=== PATIENT | male | born 1995 | race Caucasian/White ===

== ENCOUNTER 2018-04-17 23:07 | Inpatient (IN) | payer MEDICAID, OTHER ==
[2018-04-18 00:07] LABS: ADD MAN DIFF? NO; URINE BLOOD (Dip) POC 1+ (NEGATIVE); URINE GLUCOSE (Dip) POC Negative (NEGATIVE); URINE KETONES (Dip) POC 1+ (NEGATIVE); URINE LEUKOCYTE EST (Dip) POC Negative (NEGATIVE); URINE NITRITE (Dip) POC Negative (NEGATIVE); URINE TOTAL PROTEIN POC 2+ (NEGATIVE)
[2018-04-18 00:12] LABS: BASOPHIL # 0.1 10^3/ul (0.0-0.1); BASOPHILS % 0.4 % (0.0-2.0); HEMATOCRIT 56.2 % (42.0-52.0); HEMOGLOBIN 19.2 g/dl (14.0-18.0); LYMPHOCYTES # 1.4 10^3/ul (0.8-2.9); LYMPHOCYTES % 6.6 % (15.0-51.0); MEAN CORPUSCULAR HEMOGLOBIN 28.7 pg (29.0-33.0); MEAN CORPUSCULAR HGB CONC 34.2 g/dl (32.0-37.0); MEAN PLATELET VOLUME 10.7 fl (7.4-10.4); MONOCYTES % 4.4 % (0.0-11.0); NEUTROPHIL # 19.2 10^3/ul (1.6-7.5); NEUTROPHILS % 87.5 % (39.0-77.0); PLATELET COUNT 342 10^3/UL (140-415); RED BLOOD COUNT 6.69 10^6/ul (4.70-6.10); RED CELL DISTRIBUTION WIDTH 14.2 % (11.5-14.5)
[2018-04-18 00:12] LABS: WHITE BLOOD COUNT 21.9 10^3/ul (4.8-10.8)
[2018-04-18] MEDS: ONDANSETRON 4 MG INJ IV (00:18)
[2018-04-18] MEDS: PANTOPRAZOLE 40 MG INJ IV (00:18)
[2018-04-18] MEDS: KETOROLAC 15 MG INJ IV (00:19)
[2018-04-18] MEDS: SOD CHLORIDE 0.9% 1,000 ML IV ×3 (00:21→10:30)
[2018-04-18 00:34] LABS: ALANINE AMINOTRANSFERASE 44 IU/L (13-69); ALKALINE PHOSPHATASE 141 IU/L (42-121); ANION GAP 27 (8-16); ASPARTATE AMINO TRANSFERASE 46 IU/L (15-46); BILIRUBIN,INDIRECT 1.2 mg/dl (0-1.1); BILIRUBIN,TOTAL 1.2 mg/dl (0.2-1.3); BLOOD UREA NITROGEN 35 mg/dl (7-20); CALCIUM 11.3 mg/dl (8.4-10.2); CARBON DIOXIDE 21 mmol/L (21-31); CHLORIDE 97 mmol/L (97-110); CREATININE 3.12 mg/dl (0.61-1.24); GLUCOSE 201 mg/dl (70-220); LIPASE 66 U/L (23-300); POTASSIUM 3.2 mmol/L (3.5-5.1); SODIUM 142 mmol/L (135-144); TOTAL PROTEIN 10.8 g/dl (6.1-8.1)
[2018-04-18] MEDS: LORAZEPAM 2 MG INJ IV ×2 (00:39→04:21)
[2018-04-18 00:46] LABS: ADD UMIC YES; UR ASCORBIC ACID NEGATIVE (NEGATIVE); UR BACTERIA FEW /HPF (NONE SEEN); UR BILIRUBIN (Dip) 1+ mg/dL (NEGATIVE); UR BLOOD (Dip) 1+ mg/dL (NEGATIVE); UR CALCIUM OXALATE CRYSTAL FEW /HPF (NONE SEEN); UR CLARITY CLOUDY (CLEAR); UR COLOR AMBER (YELLOW); UR GLUCOSE (Dip) NEGATIVE (NEGATIVE); UR HYALINE CAST FEW /HPF (NONE SEEN); UR KETONES (Dip) TRACE mg/dL (NEGATIVE); UR LEUKOCYTE ESTERASE (Dip) NEGATIVE Leu/ul (NEGATIVE); UR MUCUS FEW /HPF (NONE SEEN); UR NITRITE (Dip) NEGATIVE (NEGATIVE); UR RBC 7 /HPF (0-5); UR SPECIFIC GRAVITY (Dip) 1.023 (1.003-1.030); UR SQUAMOUS EPITHELIAL CELL FEW /HPF (FEW); UR TOTAL PROTEIN (Dip) 2+ mg/dl (NEGATIVE); UR UROBILINOGEN (Dip) 2+ mg/dL (NEGATIVE); UR WBC 2 /HPF (0-5)
[2018-04-18] MEDS ORDERED: ACETAMINOPHEN 325 MG TAB PO (07:30)
[2018-04-18] MEDS ORDERED: ONDANSETRON 4 MG INJ IV (07:30)
[2018-04-18] MEDS ORDERED: NACL 0.9% 3 ML SYG IV (07:30)
[2018-04-18] MEDS: LEVOFLOXACIN 500MG/D5W (PMX) 100 ML IVPB (10:04)
[2018-04-18] MEDS: HEPARIN 5,000 UNIT/0.5 ML VIAL SC (10:09)
[2018-04-18 11:45] LABS: ETHANOL < 10.0 mg/dl
[2018-04-18 11:58] LABS: ALBUMIN/GLOBULIN RATIO 1.25
[2018-04-18 11:59] LABS: ALBUMIN > 6.0 g/dl (3.3-4.9)
[2018-04-18 15:55] LABS: CREATINE KINASE 504 IU/L (23-200)
[2018-04-18] MEDS ORDERED: POTASSIUM CHLORIDE 10 MEQ in SOD CHLORIDE 0.9% 1,000 ML IV (16:00)
[2018-04-18 16:09] LABS: CK INDEX 0.4; CK-MB 2.23 ng/ml (0.0-2.4); TROPONIN-I < 0.010 ng/ml (0.000-0.120)
== END 2018-04-18 16:00 | disposition left against medical advice (07) | DRG 923 ==
LOC: FTE 23:07 → MS1 04-18 04:45
DX: T67.0XXA Heatstroke and sunstroke, initial encounter (principal); N17.9 Acute kidney failure, unspecified; D75.1 Secondary polycythemia; E86.0 Dehydration; F17.210 Nicotine dependence, cigarettes, uncomplicated; E87.6 Hypokalemia; L74.9 Eccrine sweat disorder, unspecified; X58.XXXA Exposure to other specified factors, initial encounter; Y93.89 Activity, other specified; Y92.69 Other specified industrial and construction area as the place of occurrence of the external cause; Y99.0 Civilian activity done for income or pay
CPT/HCPCS: 36415; 71046; 74176; 76775; 80053; 80307; 81001; 81003; 82550; 82553; 83690; 84484; 85025; 86850; 86900; 86901; 96374; 96375; 96376; 99285-25

== ENCOUNTER 2018-05-07 15:46 | Emergency (ER) | payer SELFPAY ==
[2018-05-07 18:10] LABS: URINE BLOOD (Dip) POC Trace-intact (NEGATIVE); URINE GLUCOSE (Dip) POC Negative (NEGATIVE); URINE KETONES (Dip) POC Negative (NEGATIVE); URINE LEUKOCYTE EST (Dip) POC Negative (NEGATIVE); URINE NITRITE (Dip) POC Negative (NEGATIVE); URINE TOTAL PROTEIN POC Trace (NEGATIVE)
[2018-05-07] MEDS: HYDROCODONE/APAP (5/325) TAB PO (18:11)
[2018-05-07] MEDS: KETOROLAC 60 MG INJ IM (19:00)
== END 2018-05-07 19:45 | disposition home or self-care (01) ==
LOC: FTE 15:46
DX: M54.5 Low back pain (principal); F17.210 Nicotine dependence, cigarettes, uncomplicated
CPT/HCPCS: 81003; 96372; 99284-25

== ENCOUNTER 2018-08-01 17:39 | Inpatient (IN) | payer MEDICAID ==
[2018-08-01] MEDS ORDERED: morphine 4 MG/ML VIAL IV (19:53)
[2018-08-01] MEDS: SOD CHLORIDE 0.9% 1,000 ML IV ×3 (20:17→23:45)
[2018-08-01 20:18] LABS: ADD MAN DIFF? NO
[2018-08-01] MEDS: FAMOTIDINE 20 MG INJ IV (20:18)
[2018-08-01] MEDS: ACETAMINOPHEN 325 MG TAB PO (20:18)
[2018-08-01] MEDS: ONDANSETRON 4 MG INJ IV (20:18)
[2018-08-01 20:21] LABS: WHITE BLOOD COUNT 19.6 10^3/ul (4.8-10.8)
[2018-08-01 20:21] LABS: BASOPHIL # 0.1 10^3/ul (0.0-0.1); BASOPHILS % 0.5 % (0.0-2.0); HEMATOCRIT 55.2 % (42.0-52.0); HEMOGLOBIN 19.2 g/dl (14.0-18.0); LYMPHOCYTES # 1.3 10^3/ul (0.8-2.9); LYMPHOCYTES % 6.6 % (15.0-51.0); MEAN CORPUSCULAR HEMOGLOBIN 29.2 pg (29.0-33.0); MEAN CORPUSCULAR HGB CONC 34.8 g/dl (32.0-37.0); MEAN CORPUSCULAR VOLUME 83.9 fl (82.0-101.0); MONOCYTE # 1.1 10^3/ul (0.3-0.9); MONOCYTES % 5.8 % (0.0-11.0); NEUTROPHILS % 86.4 % (39.0-77.0); PLATELET COUNT 315 10^3/UL (140-415); RED BLOOD COUNT 6.58 10^6/ul (4.70-6.10)
[2018-08-01 20:38] LABS: ALANINE AMINOTRANSFERASE 35 IU/L (13-69); ALKALINE PHOSPHATASE 128 IU/L (42-121); ANION GAP 24 (5-13); ASPARTATE AMINO TRANSFERASE 44 IU/L (15-46); BILIRUBIN,INDIRECT 1.5 mg/dl (0-1.1); BILIRUBIN,TOTAL 1.5 mg/dl (0.2-1.3); BLOOD UREA NITROGEN 26 mg/dl (7-20); CALCIUM 10.9 mg/dl (8.4-10.2); CARBON DIOXIDE 23 mmol/L (21-31); CHLORIDE 95 mmol/L (97-110); Estimated GFR 32 mL/min (>60); GLUCOSE 149 mg/dl (70-220); LIPASE 68 U/L (23-300); POTASSIUM 3.9 mmol/L (3.5-5.1); SODIUM 142 mmol/L (135-144); TOTAL PROTEIN 9.8 g/dl (6.1-8.1)
[2018-08-01 20:38] LABS: CREATINE KINASE 553 IU/L (23-200)
[2018-08-01 20:51] LABS: ALBUMIN 6.4 g/dl (3.3-4.9); ALBUMIN/GLOBULIN RATIO 1.88
[2018-08-01 21:11] LABS: ADD UMIC YES; UR ASCORBIC ACID 40 mg/dL (NEGATIVE); UR BACTERIA FEW /HPF (NONE SEEN); UR BILIRUBIN (Dip) 1+ mg/dL (NEGATIVE); UR BLOOD (Dip) 1+ mg/dL (NEGATIVE); UR CLARITY CLOUDY (CLEAR); UR COLOR AMBER (YELLOW); UR GLUCOSE (Dip) NEGATIVE (NEGATIVE); UR HYALINE CAST MODERATE /HPF (NONE SEEN); UR KETONES (Dip) 1+ mg/dL (NEGATIVE); UR LEUKOCYTE ESTERASE (Dip) NEGATIVE Leu/ul (NEGATIVE); UR MUCUS MODERATE /HPF (NONE SEEN); UR NITRITE (Dip) NEGATIVE (NEGATIVE); UR RBC 3 /HPF (0-5); UR SPECIFIC GRAVITY (Dip) 1.026 (1.003-1.030); UR SQUAMOUS EPITHELIAL CELL FEW /HPF (FEW); UR TOTAL PROTEIN (Dip) 2+ mg/dl (NEGATIVE); UR UROBILINOGEN (Dip) 2+ mg/dL (NEGATIVE); UR WBC 6 /HPF (0-5)
[2018-08-01] MEDS ORDERED: HYDROCODONE/APAP (5/325) TAB PO (22:30)
[2018-08-01] MEDS ORDERED: ACETAMINOPHEN 325 MG TAB PO ×2 (23:30)
[2018-08-01] MEDS ORDERED: ONDANSETRON 4 MG INJ IV ×2 (23:30)
[2018-08-01] MEDS ORDERED: BISACODYL (EC) 5 MG TAB PO (23:30)
[2018-08-01] MEDS ORDERED: NACL 0.9% 3 ML SYG IV (23:30)
[2018-08-02] MEDS ORDERED: HEPARIN 5,000 UNIT/0.5 ML VIAL ×3 (00:23→13:15)
[2018-08-02] MEDS: HEPARIN 5,000 UNIT/1 ML VIAL SC ×3 (00:32→14:36)
[2018-08-02 01:31] LABS: TROPONIN-I < 0.012 ng/ml (0.000-0.120)
[2018-08-02] MEDS: CYCLOBENZAPRINE 10 MG TAB PO (04:41)
[2018-08-02] MEDS: SUCRALFATE 1 GM TAB PO ×2 (04:41→12:07)
[2018-08-02 05:01] LABS: ADD MAN DIFF? NO
[2018-08-02 05:10] LABS: WHITE BLOOD COUNT 10.7 10^3/ul (4.8-10.8)
[2018-08-02 05:10] LABS: BASOPHIL # 0.1 10^3/ul (0.0-0.1); BASOPHILS % 0.7 % (0.0-2.0); EOSINOPHILS % 0.3 % (0.0-7.0); HEMATOCRIT 47.9 % (42.0-52.0); HEMOGLOBIN 16.2 g/dl (14.0-18.0); LYMPHOCYTES # 2.4 10^3/ul (0.8-2.9); MEAN CORPUSCULAR HEMOGLOBIN 29.2 pg (29.0-33.0); MEAN CORPUSCULAR HGB CONC 33.8 g/dl (32.0-37.0); MEAN CORPUSCULAR VOLUME 86.5 fl (82.0-101.0); MEAN PLATELET VOLUME 10.7 fl (7.4-10.4); MONOCYTE # 1.5 10^3/ul (0.3-0.9); MONOCYTES % 13.7 % (0.0-11.0); NEUTROPHIL # 6.8 10^3/ul (1.6-7.5); PLATELET COUNT 263 10^3/UL (140-415); RED BLOOD COUNT 5.54 10^6/ul (4.70-6.10); RED CELL DISTRIBUTION WIDTH 13.4 % (11.5-14.5)
[2018-08-02 05:17] LABS: HEMOGLOBIN A1C 5.1 % (0-5.9)
[2018-08-02] MEDS: PANTOPRAZOLE (EC) 40 MG TAB PO (05:33)
[2018-08-02] MEDS: HYDROCODONE/APAP (5/325) TAB PO ×2 (05:33→12:06)
[2018-08-02] MEDS: SOD CHLORIDE 0.9% 1,000 ML IV ×3 (05:33→13:11)
[2018-08-02 05:37] LABS: ALANINE AMINOTRANSFERASE 28 IU/L (13-69); ALBUMIN 4.8 g/dl (3.3-4.9); ALBUMIN/GLOBULIN RATIO 1.84; ALKALINE PHOSPHATASE 81 IU/L (42-121); ANION GAP 11 (5-13); ASPARTATE AMINO TRANSFERASE 38 IU/L (15-46); BILIRUBIN,INDIRECT 1.7 mg/dl (0-1.1); BILIRUBIN,TOTAL 1.7 mg/dl (0.2-1.3); BLOOD UREA NITROGEN 23 mg/dl (7-20); CALCIUM 9.4 mg/dl (8.4-10.2); CARBON DIOXIDE 30 mmol/L (21-31); CHLORIDE 100 mmol/L (97-110); CREATINE KINASE 485 IU/L (23-200); CREATININE 1.17 mg/dl (0.61-1.24); Estimated GFR > 60 mL/min (>60); GLUCOSE 98 mg/dl (70-220); MAGNESIUM 2.5 mg/dl (1.7-2.5); POTASSIUM 3.7 mmol/L (3.5-5.1); SODIUM 141 mmol/L (135-144); TOTAL PROTEIN 7.4 g/dl (6.1-8.1)
[2018-08-02] MEDS: NICOTINE (14 MG/24 HR) PATCH TRANSDERM (08:30)
[2018-08-02] MEDS: DOCUSATE SODIUM 100 MG CAP PO (10:56)
[2018-08-06 00:12] LABS: ERYTHROPOIETIN 1.4 mIU/mL (2.6-18.5)
== END 2018-08-02 15:00 | disposition home or self-care (01) | DRG 558 ==
LOC: PP2 08-02 05:00 → FTE 17:39 → MS1 23:08
DX: M62.82 Rhabdomyolysis (principal); N17.9 Acute kidney failure, unspecified; E86.0 Dehydration; Z72.0 Tobacco use; N18.9 Chronic kidney disease, unspecified; D75.1 Secondary polycythemia; M54.9 Dorsalgia, unspecified; K29.70 Gastritis, unspecified, without bleeding; K21.9 Gastro-esophageal reflux disease without esophagitis; F10.10 Alcohol abuse, uncomplicated; F12.90 Cannabis use, unspecified, uncomplicated
CPT/HCPCS: 74176; 80053; 81001; 82550; 82668; 83036; 83690; 83735; 84443; 84484; 85025